=== PATIENT | male | born 1990 | race Hispanic/Latino ===

== ENCOUNTER → 2024-05-04 | Day surgery (SDC) | payer SELFPAY ==
[2024-05-03 10:29] VITALS: BMI 25.8
[~2024-05-04] MED LIST: Bacitracin Zinc Ointment 30 gm TUBE ONE; Bupivacaine HCl 0.5%/Epinephrine 1:200,000/PF 30 ml Vial ONE; Bupivacaine PF 0.5% 30 ML VIAL ONE; CEFAZOLIN 2 GM VIAL ONE; Dexamethasone 4 mg/ml Vial ONE; Glycopyrrolate 0.2 MG/ML 5 ML SYRINGE ONE; Ketorolac Tromethamine 30 MG (1 mL) VIAL ONE; Midazolam HCl 2 mg/2 ml Vial ONE; Ondansetron PF 4 MG/2 ML Vial ONE; PHENYLEPHRINE-NS 100 MCG/ML 10 ML SYRINGE ONE; PROPOFOL 20 ML ONE; Sodium Chloride 0.9% 100 ML ONE; fentaNYL 50 mcg/mL 1 mL Vial ONE; fentaNYL PF 100 MCG/2 ML SYRINGE ONE
[2024-05-04 13:05] LABS: #Basophils 0.05 10x3/uL (0.0-0.2); %Basophils 0.6 % (0.0-1.0); %Eosinophils 2.2 % (0.0-10.0); %Lymphocytes 23.9 % (21.0-51.0); %Monocytes 9.5 % (0.0-10.0); %Neutrophils 63.3 % (42.0-75.0); Hematocrit 43.7 % (42.0-52.0); Hemoglobin 14.6 g/dL (14.0-18.0); Mean Corpuscular HGB CONC 33.4 g/dL (32.0-36.0); Mean Corpuscular Hemoglobin 30.1 pg (27.0-31.0); Mean Corpuscular Volume 90.1 fL (78.0-98.0); Mean Platelet Volume 10.3 fL (7.4-10.4); Platelet Count 216 10x3/uL (130-400); RBC Distribution Width 12.5 % (11.5-14.5); Red Blood Cell (RBC) Count 4.85 mill/uL (4.70-6.10)
== END ==
LOC: SDC 11:45
PROVIDERS: ATTEND Orthopaedic Surgery Hand Surgery
PROC: 0PSJ04Z Reposition Left Radius with Internal Fixation Device, Open Approach (ICD-10-PCS; principal; 2024-05-04)
PROC: 3E0T3BZ Introduction of Anesthetic Agent into Peripheral Nerves and Plexi, Percutaneous Approach (ICD-10-PCS; principal; 2024-05-04)
DX: S52.571A Other intraarticular fracture of lower end of right radius, initial encounter for closed fracture (principal); E78.00 Pure hypercholesterolemia, unspecified; Z79.899 Other long term (current) drug therapy; W13.2XXA Fall from, out of or through roof, initial encounter
CPT/HCPCS: 85025; C1713; C1889; J0665; J1100; J1885; J2250; J2405; J2704; J3010